=== PATIENT | male | born 1950 | race Two or more races ===

== ENCOUNTER 2018-11-13 06:10 | Day surgery (SDC) | payer OTHER ==
[~2018-11-13 06:10] MED LIST: HYOSCYAMINE0.125 M1 SL; Neurin-Sl Tablet Sl SL; OXYC1TAB9 PO; PROTONIX40 MG PO
== END 2018-11-13 11:13 | disposition home or self-care (01) ==
LOC: AMB-ENDOS 06:10
DX: D12.2 Benign neoplasm of ascending colon (principal); D12.3 Benign neoplasm of transverse colon; D12.4 Benign neoplasm of descending colon; D12.8 Benign neoplasm of rectum

== ENCOUNTER 2021-06-08 06:43 | Day surgery (SDC) | payer OTHER | END 2021-06-08 10:00 | disposition home or self-care (01) | LOC: AMB-ENDOS 06:43 | PROVIDERS: ATTEND Surgery | DX: D12.8 Benign neoplasm of rectum (principal); Z20.822 Contact with and (suspected) exposure to COVID-19 ==